=== PATIENT | female | born 1950 | race Caucasian/White ===

== ENCOUNTER → 2016-05-31 | Outpatient (CLI) | payer OTHER ==
[~2016-05-31] MED LIST: ALBUTEROL0.09 MG/A2 INH; AMOXICILLIN500 M2 PO; CLARITIN10 MG PO; DIFLUCAN100 MG PO; DOXYCYCLINE MO100 MG PO; NASONEX0.05 MG/AC NS; OMEPRAZOLE20 MG PO; PREDNISONE10 MG PO; SYNTHROID,LEVO88 MCG PO; Synthroid,Lev100 MCG PO; VIBRAMYCIN100 MG PO; VICODIN 5/500 505 MG PO; VITAMIN D32000 I1 PO; VOLTAREN1% TP
== END | disposition home or self-care (01) ==
LOC: MAMMO 13:19
DX: Z12.31 Encounter for screening mammogram for malignant neoplasm of breast (principal)

== ENCOUNTER 2017-07-01 18:49 | Inpatient (IN) | payer MEDICARE ==
[~2017-07-01] VITALS: Ht 154.9 cm; Wt 108.0 kg
--- NOTE | ~2017-07-01 | O ---
[place], [place] OPERATIVE NOTE NAME: FAROOQ WATKINS UNIT #: [id number] ROOM: 411 DOCTOR: MARLENA THOMPSONSTEPHAN BIRTHDATE: [birth year] DOS: 07/04/2017 HISTORY OF PRESENT ILLNESS: The patient is a 67-year-old who has presented with atypical chest pain; however, cardiologically had to be addressed and cleared after testings to be negative cardiac concerns. She continued with epigastric distress, subxiphoid pain. H and H was 12 and 36. INR was 1.0. Rapid flu A and B was unremarkable. Comprehensive metabolic panel, electrolyte, liver function tests, troponin all within normal limits. Chest x-ray, no acute findings of acute cardiopulmonary pathology. Troponin normal. PAST MEDICAL HISTORY: Obesity, hiatal hernia, GERD, and allergic rhinitis. PAST SURGICAL HISTORY: Tonsillectomy, cholecystectomy, laminectomy, cervical fusion, D and C. SOCIAL HISTORY: Nonsmoker and nonalcohol consumer. FAMILY HISTORY: Unremarkable. ALLERGIES: LEVOFLOXACIN. MEDICATIONS: List has been reviewed. The patient is on omeprazole 20 mg daily. PROCEDURE: Today's procedure part of investigation is panendoscopy plus biopsy. PREMEDICATION: Versed and Diprivan. SCOPE: Olympus forward-viewing gastroscope Q10 video. REPORT: After putting the patient in left lateral position and application of lubricant to the scope, the scope was introduced. Thereafter, under direct visualization, advanced through the length of esophagus without difficulty. A 2.5 to 3 cm hiatal hernia was noticed. Gastric pouch was entered. Mild gastritis was seen. Duodenal bulb, second and third part within normal limits. Antral biopsy obtained. The patient was extubated and tolerated the procedure well. IMPRESSION: Hiatal hernia, mild gastritis. She requires to remain on PPI. PLAN AND DISCUSSION: Omeprazole 20 mg 1 every day suffice in addition to Gaviscon Extra Strength one at bedtime, elevation of the head of the bed 6-inch all the time and supportive management otherwise. As far as her cardiac, left ventricular ejection fraction was greater than 81%, so we are clear as far as her cardiac is concerned. The patient can be discharged today. Thank you very much. [place], [place] OPERATIVE NOTE NAME: FAROOQ WATKINS UNIT #: [id number] ROOM: 411 DOCTOR: STEPHAN MENDIOLA MD BIRTHDATE: [birth year] STEPHAN MENDIOLA MD CM:OPRECORD:OPERATIVE NOTE [id number] STEPHAN MENDIOLA MD 07/04/17 1644 interface
[~2017-07-01 18:49] MED LIST changes: +OMEPRAZOLE MAGN20 MG PO; -OMEPRAZOLE20 MG PO
[2017-07-01 19:01] VITALS: BP 186/74
[2017-07-01 19:15] VITALS: BP 159/81
[2017-07-01 19:28] LABS: BASO % 0.7 % (0.0-1.0); EOS # 0.1 10*3/uL (0.0-0.4); EOS % 1.3 % (1.0-4.0); LYMPH # 1.3 10*3/uL (1.3-4.4); LYMPH % 22.1 % (27.0-41.0); MEAN CELL VOLUME 88.9 fl (81.0-99.0); MEAN CORPUSCULAR HGB 29.6 pg (27.0-31.0); MEAN CORPUSCULAR HGB CONC 33.3 g/dl (33.0-37.0); MEAN PLATELET VOLUME 9.9 fl (9.6-12.3); MONO # 0.4 10*3/uL (0.1-1.0); MONO % 7.2 % (3.0-9.0); NEUT # 4.1 10*3/uL (2.3-7.9); NEUT % 68.4 % (47.0-73.0); PLATELET COUNT AUTOMATED 199 10*3/uL (130-400); RED BLOOD COUNT 4.05 10*6/uL (4.10-5.10); RED CELL DISTRI WIDTH 13.1 % (0-14.5); WHITE BLOOD COUNT 5.9 10*3/uL (4.8-10.8)
[2017-07-01 19:30] VITALS: BP 152/69
[2017-07-01 19:30] LABS: BILIRUBIN NEGATIVE (NEGATIVE); BLOOD NEGATIVE (NEGATIVE); CLARITY CLEAR (CLEAR); COLOR YELLOW (YELLOW); GLUCOSE NEGATIVE (NEGATIVE); KETONE 1+ (NEGATIVE); LEUKO ESTERASE 2+ (NEGATIVE); NITRITE NEGATIVE (NEGATIVE); SPECIFIC GRAVITY <= 1.005 (1.005-1.030); UROBILINOGEN 0.2 E.U./dl (0.2-1.0)
[2017-07-01 19:37] LABS: BACTERIA TRACE; EPITHELIAL CELLS 0-2
[2017-07-01 19:40] LABS: ACT PARTIAL THROMBO TIME 26.6 SECONDS (20.8-31.5)
[2017-07-01 19:47] LABS: ALBUMIN 4.1 gm/dl (3.1-4.5); BUN 14 mg/dl (7-24); CHLORIDE 100 mmol/L (98-107); CREATININE 0.71 mg/dL (0.55-1.02); POTASSIUM 3.4 mmol/L (3.5-5.1); SGOT/AST 16 IU/L (3-35); SGPT/ALT 16 U/L (12-78); SODIUM 136 mmol/L (136-145); TOTAL PROTEIN 7.1 gm/dL (6.4-8.2)
[2017-07-01 19:48] LABS: THYROXINE (T4) TOTAL 12.8 ug/dl (4.8-13.9)
[2017-07-01 19:50] LABS: ALKALINE PHOSPHATASE 81 U/L (45-117); TROPONIN I < 0.015 ng/ml (<0.045)
[2017-07-01 19:56] LABS: THYROID STIM HORMONE (HS) 0.724 uIU/ml (0.358-4.75)
[2017-07-01 20:15] VITALS: BP 155/69
[2017-07-01 22:00] VITALS: BP 144/78
[2017-07-02] VITALS: BP 128/55
[2017-07-02 06:58] LABS: BASO % 0.6 % (0.0-1.0); EOS # 0.1 10*3/uL (0.0-0.4); EOS % 1.9 % (1.0-4.0); HEMATOCRIT 33.5 % (37.0-47.0); HEMOGLOBIN 10.9 g/dl (12.0-16.0); LYMPH # 1.8 10*3/uL (1.3-4.4); LYMPH % 34.2 % (27.0-41.0); MEAN CELL VOLUME 88.9 fl (81.0-99.0); MEAN CORPUSCULAR HGB 28.9 pg (27.0-31.0); MEAN CORPUSCULAR HGB CONC 32.5 g/dl (33.0-37.0); MEAN PLATELET VOLUME 10.5 fl (9.6-12.3); MONO # 0.4 10*3/uL (0.1-1.0); MONO % 7.6 % (3.0-9.0); NEUT % 55.3 % (47.0-73.0); PLATELET COUNT AUTOMATED 186 10*3/uL (130-400); RED BLOOD COUNT 3.77 10*6/uL (4.10-5.10); RED CELL DISTRI WIDTH 13.2 % (0-14.5); WHITE BLOOD COUNT 5.4 10*3/uL (4.8-10.8)
[2017-07-02 07:08] LABS: ALBUMIN 3.3 gm/dl (3.1-4.5); BUN 11 mg/dl (7-24); CHLORIDE 106 mmol/L (98-107); CHOLESTEROL 224 mg/dL (<200); CREATININE 0.58 mg/dL (0.55-1.02); POTASSIUM 3.6 mmol/L (3.5-5.1); SGOT/AST 15 IU/L (3-35); SGPT/ALT 16 U/L (12-78); SODIUM 143 mmol/L (136-145)
[2017-07-02 07:10] LABS: ALKALINE PHOSPHATASE 69 U/L (45-117); HDL CHOLESTEROL 65 mg/dl (40-60); LDL CHOLESTEROL 140 mg/dL (9-159); TRIGLYCERIDES 97 mg/dl (<150); VLDL CHOLESTEROL 19 mg/dL (6-40)
[2017-07-02 08:00] VITALS: BP 118/78; BP 133/67
[2017-07-02 08:10] LABS: VITAMIN D, 25-HYDROXY 28.2 ng/mL (30-100)
[2017-07-02 12:00] VITALS: BP 125/54
[2017-07-02 16:00] VITALS: BP 142/73
[2017-07-02 20:00] VITALS: BP 121/62
[2017-07-03] VITALS: BP 123/60
[2017-07-03 06:41] LABS: RETICULOCYTE % 0.99 % (0.50-2.50)
[2017-07-03 07:07] LABS: IRON 65 ug/dL (50-170); TOTAL IRON BINDING CAPACITY 266 ug/dl (250-450)
[2017-07-03 08:00] VITALS: BP 118/70
[2017-07-03 08:33] LABS: FERRITIN 67.9 ng/mL (10.0-291.0)
[2017-07-03 12:00] VITALS: BP 118/60
[2017-07-03 16:00] VITALS: BP 127/64
[2017-07-03 20:12] VITALS: BP 121/67
[2017-07-04] VITALS (8 sets, daily range): BP systolic 111–141; BP diastolic 47–64
[2017-07-04] MEDS ORDERED: GAVISCON ES TA1 EACH PO (15:26)
[2017-07-04] MEDS ORDERED: DOXYCYCLINE100 M3 PO (17:36)
[2017-07-04] MEDS ORDERED: MACROBID100 M1 PO (18:39)
== END 2017-07-04 19:15 | disposition home or self-care (01) | DRG 392 ==
LOC: ED 18:49 → EDHOLD 20:38 → 4E 20:38 → EDHOLD 20:43 → ICCU 20:43 → 4E 20:57
PROVIDERS: Family Medicine Adult Medicine; Hospitalist; Nurse Practitioner Family
PROC: 4A02XM4 Measurement of Cardiac Total Activity, External Approach (ICD-10-PCS; principal; 2017-07-03)
PROC: 0DB68ZX Excision of Stomach, Via Natural or Artificial Opening Endoscopic, Diagnostic (ICD-10-PCS; 2017-07-04)
DX: K21.9 Gastro-esophageal reflux disease without esophagitis (principal); K76.0 Fatty (change of) liver, not elsewhere classified; E66.01 Morbid (severe) obesity due to excess calories; N39.0 Urinary tract infection, site not specified; Z68.45 Body mass index [BMI] 70 or greater, adult; K29.70 Gastritis, unspecified, without bleeding; M54.32 Sciatica, left side; E03.9 Hypothyroidism, unspecified; E55.9 Vitamin D deficiency, unspecified; R07.89 Other chest pain; F15.10 Other stimulant abuse, uncomplicated; J30.2 Other seasonal allergic rhinitis; K44.9 Diaphragmatic hernia without obstruction or gangrene; E78.00 Pure hypercholesterolemia, unspecified; F41.9 Anxiety disorder, unspecified; B96.20 Unspecified Escherichia coli [E. coli] as the cause of diseases classified elsewhere; Z88.8 Allergy status to other drugs, medicaments and biological substances; Z79.899 Other long term (current) drug therapy; Z98.1 Arthrodesis status; Z90.89 Acquired absence of other organs; Z90.49 Acquired absence of other specified parts of digestive tract

== ENCOUNTER → 2017-07-29 | Outpatient (CLI) | payer MEDICARE ==
[~2017-07-29] MED LIST changes: +DOXYCYCLINE100 M3 PO; +GAVISCON ES TA1 EACH PO; +MACROBID100 M1 PO
== END | disposition home or self-care (01) ==
LOC: MAMMO 06-03 16:20
DX: Z12.31 Encounter for screening mammogram for malignant neoplasm of breast (principal)

== ENCOUNTER → 2018-09-16 | Outpatient (CLI) | payer MEDICARE | END | disposition home or self-care (01) | LOC: MAMMO 09-15 10:29 | DX: Z12.31 Encounter for screening mammogram for malignant neoplasm of breast (principal) ==

== ENCOUNTER → 2020-10-16 | Outpatient (CLI) | payer MEDICARE | END | disposition home or self-care (01) | LOC: MAMMO 00:12 | PROVIDERS: ATTEND Internal Medicine | DX: Z12.31 Encounter for screening mammogram for malignant neoplasm of breast (principal); N63.20 Unspecified lump in the left breast, unspecified quadrant; N63.10 Unspecified lump in the right breast, unspecified quadrant ==

== ENCOUNTER → 2021-12-12 | Outpatient (CLI) | payer MEDICARE | END | disposition home or self-care (01) | LOC: MAMMO 10:41 → LAB 10:41 → MAMMO 11:00 | PROVIDERS: ATTEND Internal Medicine | DX: Z12.31 Encounter for screening mammogram for malignant neoplasm of breast (principal); R19.7 Diarrhea, unspecified ==

== ENCOUNTER → 2022-08-24 | Outpatient (CLI) | payer MEDICARE ==
[2022-08-24 11:40] LABS: CHOLESTEROL 246 mg/dL (<200); LDL CHOLESTEROL 162 mg/dL (9-159); TRIGLYCERIDES 96 mg/dl (<150)
[2022-08-24 11:45] LABS: VITAMIN D, 25-HYDROXY 39.6 ng/mL (30-100)
== END | disposition home or self-care (01) ==
LOC: LAB 10:30
PROVIDERS: ATTEND Internal Medicine
DX: Z11.59 Encounter for screening for other viral diseases (principal); R53.83 Other fatigue; E03.9 Hypothyroidism, unspecified

== ENCOUNTER → 2022-09-12 | Outpatient (CLI) | payer MEDICARE | END | disposition home or self-care (01) | LOC: US 00:14 | PROVIDERS: ATTEND Internal Medicine | DX: M79.605 Pain in left leg (principal); M79.604 Pain in right leg; R20.2 Paresthesia of skin ==

== ENCOUNTER → 2024-01-21 | Outpatient (CLI) | payer MEDICARE | END | disposition home or self-care (01) | LOC: RAD 14:49 | PROVIDERS: ATTEND Internal Medicine | DX: M16.0 Bilateral primary osteoarthritis of hip (principal); M47.817 Spondylosis without myelopathy or radiculopathy, lumbosacral region; M48.07 Spinal stenosis, lumbosacral region; M41.87 Other forms of scoliosis, lumbosacral region ==